=== PATIENT | female | born 1950 | race Caucasian/White ===

== ENCOUNTER 2022-01-28 11:00 | Outpatient (RCR) | payer OTHER, SELFPAY | END 2022-04-26 09:46 | disposition home or self-care (01) | PROVIDERS: PCP Family Medicine; Visit Provider Family Medicine | DX: M16.11 Unilateral primary osteoarthritis, right hip (principal); Z51.89 Encounter for other specified aftercare | CPT/HCPCS: 97012; 97110; 97140 ==

== ENCOUNTER 2022-02-12 07:19 | Outpatient (CLI) | payer OTHER, SELFPAY ==
--- OUTSIDE RECORDS SUMMARY | 2022-02-12 07:22 | XMS_ITS | Continuity of Care Document ---
:1950 Author Organization [facility] Address [address] [address] [place] [address] Phone Care Team Providers Name Role Phone Millie Steele MD Unavailable Unavailable Medications Medication Instructions Dosage Effective Dates Status Comment s (start - stop) VITAMIN C (unknown Take one tablet by Not Available - Act alexandro strength) mouth daily Multiple Vitamin Take one tablet by - Active Tab mouth daily Lo-Dose Aspirin 81 Take one tablet by - Active mg Tab, Delayed mouth daily Release Procedures Procedure Date Colonoscopy Flex; Dx (sep Pro) Advance Directives Directive Yes / No Effective Date File Name No Information Encounters Encounter Practice Location Reason(s) Diagnoses Date Provider Provide rs Description For Visit Copied on Encounter HERMELINDA SHEN Colon Cancer [facility] Screening[facility] 1-200 [facility], [place] osis Of Colon [address] [address], [facility] [place], [place], [place], [place] [id number], [address], [place] [facility] tel: [place], [place], [id number] , [place]. tel:+ [phone] Family History Family Member Type Diagnosis Age At Onset No Information Payers Payer name Insurance type Covered republican ID Authorization(s ) [place] Of [place] [id number] Social History Type Description Quantity Date Captured Comments Sex Female Smoking Status No Information Chief Complaint And Reason For Visit No Information Reason For Referral Reason For Referral No Information Plan Of Treatment Date Type Action Status No Information History Of Present Illness Encounter Date Complaint History Of Present I llness No Information Functional Status Date Functional Assessment No Information Instructions Date Instruction Additional Informati on No Information Assessments Type Assessment Date No Information Patient Care Teams Name Effective Dates (start - stop) Status M embaimee No Information
--- OUTSIDE RECORDS SUMMARY | 2022-02-12 07:22 | XMS_ITS | Clinical Summary ---
:1950 Author Organization [facility] [place] [address] Care Team Providers Name Role Phone Annmarie Nix MD Primary Care Provider [phone] Allergies No known active allergies Medications Medication Sig Dispensed Refills Start Date End Date Status atorvastatin (LIPITOR) Take 10 mg by 0 07/16/2021 Active 10 mg tablet mouth at bedtime. buPROPion (WELLBUTRIN Take 150 mg by 0 07/16/2021 Active XL) 150 mg mouth once Extended-Release tablet daily. escitalopram oxalate Take 10 mg by 0 07/16/2021 Active (LEXAPRO) 10 mg tablet mouth once daily. losartan (COZAAR) 50 mg Take 50 mg by 0 07/16/2021 Active tablet mouth once daily. aspirin (ECOTRIN) 81 mg Take 1 Tablet 0 09/10/2021 Active enteric coated tablet (81 mg) by mouth once daily with a meal. celecoxib (CELEBREX) Take 1 Capsule 60 Capsule 2 10/23/2021 Active 200 mg (200 mg) by capsuleIndications: mouth 2 times Primary osteoarthritis daily with of right hip meals. Active Problems No known active problems Encounters Date Type Specialty Care Team Description 01/28/2022 Telephone Maynor Daniels MD Ques tions from Last 3 Months Social History Tobacco Use Types Packs/Day Years Used Date Never Smoker Smokeless Tobacco: Never Used Tobacco Cessation: Counseling Given: Yes Sex Assigned at Date Recorded Not on file Obstetrics History Last Filed Vital Signs Vital Sign Reading Time Taken Comments Blood Pressure 138/82 10/09/2021 8:33 AM CDT Pulse 84 10/09/2021 8:33 AM CDT Temperature 36.7 ??C (98 ??F) 10/09/2021 8:33 AM CDT Respiratory Rate - - Oxygen Saturation 99% 10/09/2021 8:33 AM CDT Inhaled Oxygen Concentration - - Weight 72.4 kg (159 lb 9.6 oz) 02/18/2015 4:00 PM CDT Height - - Body Mass Index - - Plan of Treatment Upcoming Encounters Date Type Specialty Care Team Description 02/12/2022 Office Visit Maynor Daniels MD [address] [place], [place] [address] (Wo rk) Health Maintenance Due Date Last Done Comments Tdap 1959 Depression screening for age 12+ 1960 BMI (ht and wt on same day) for age 1104/18/1966 18+ Hepatitis C screening for age 18-79 1966 Tetanus booster 1968 Colonoscopy through age 75 1993 Lipids for age 45-75 1993 Mammogram for age 45-75 1993 Zoster (shingles) series for age 50+ 1998 (1 of 2) DEXA/DXA scan for age 65+ 2013 Medicare Wellness for age 65+ 2013 Pneumococcal series for age 65+ (1 - 2013 PCV) COVID-19 vaccine series (4 - Booster 01/01/2022 09/01/2021, 08/12/2020, for Moderna series) 07/12/2020 Influenza for age 65+ 01/28/2022 Results Not on filefrom Last 3 Months Insurance Payer Benefit Plan / Subscriber ID Effective Dates Phone Addre ss Type Group [employer] G[employer] CHOICE [id number] 2019-Present [address] [place] [address] Care Teams Medical Assistant Per Diem Relationship Specialty Start Date End Date Annmarie Nix MD PCP - General Family Practice 4/14/[address] [place] [id number]
== END 2022-02-12 07:20 | disposition home or self-care (01) ==
PROVIDERS: PCP Family Medicine; Visit Provider Family Medicine
DX: M54.16 Radiculopathy, lumbar region (principal); M51.36 Other intervertebral disc degeneration, lumbar region
CPT/HCPCS: 62323; J0702; Q9966

== ENCOUNTER 2022-06-04 07:33 | Outpatient (CLI) | payer OTHER, SELFPAY ==
[2022-06-04 09:57] LABS: Albumin* 4.5 g/dL (3.3-5.0); Chloride* 104 mmol/L (96-114); Sodium* 140 mmol/L (135-149)
[2022-06-04 09:58] LABS: Potassium* 4.4 mmol/L (3.6-5.1)
[2022-06-04 09:59] LABS: Cholesterol* 176 mg/dL (90-199)
[2022-06-04 10:00] LABS: Alanine Aminotransferase* 22 U/L (4-35); Alkaline Phosphatase* 63 U/L (40-150); Aspartate Amino Transferase* 21 U/L (12-35); Bilirubin Total* 0.5 mg/dL (0.1-1.5); Blood Urea Nitrogen* 15 mg/dL (7-30); Calcium* 9.8 mg/dL (8.4-10.6); Carbon Dioxide* 30 mmol/L (20-32); Creatinine* 0.8 mg/dL (0.5-1.5); Estimated Glomerular Filt Rate 77 ml/min; Glucose* 116 mg/dL (60-115); Total Protein* 6.7 g/dL (6.0-8.3); Triglycerides* 119 mg/dL (40-149)
[2022-06-04 10:01] LABS: HDL Cholesterol* 78 mg/dL (>=50); LDL Cholesterol Calculated 74 mg/dL (<100)
[2022-06-04 10:10] LABS: Vitamin D 25 Hydroxy* 36 ng/mL (30-80)
== END 2022-06-04 07:34 | disposition home or self-care (01) ==
LOC: NFLDREF 07:33
PROVIDERS: PCP Family Medicine; Visit Provider Family Medicine
DX: E78.5 Hyperlipidemia, unspecified (principal); F32.A Depression, unspecified; I10 Essential (primary) hypertension; R73.03 Prediabetes
CPT/HCPCS: 80053; 80061; 82306

== ENCOUNTER 2023-08-24 10:15 | Outpatient (RCR) | payer OTHER, SELFPAY ==
--- NOTE | 2023-06-29 14:36 | OT.OPOE ---
OT Outpatient Ortho Eval OT Outpatient Ortho Eval* Start: 06/29/23 12:09 Freq: Status: Active Protocol: Document 06/29/23 12:09 BAL (Rec: 06/29/23 14:26 BAL [id number]) E-signed By Maude Cameron OTR/L, CLT OT OP Ortho Eval Details Complexity Complexity Low Insurance Information Insurance Information [employer] Outpatient History/Precautions Current Condition/Medical Diagnosis Referring Provider Goran Sales PA-C Treatment Diagnosis Pain in R wrist, M25.531; R wrist Stiffness, M25.631 Date of Onset 05/24/2023 Other Precautions Medical Dx: Other closed intra -articular fracture of distal end of right radius, initial encounter S52.571A Other Conditions Copied from chart: Provider visit on 06/28/23: Impression: Minimal residual distal radius volar lip fracture; severe STT joint, 1st CMC joint, and thumb MCP joint osteoarthrosis. PA, Lateral and Oblique views of the right wrist were obtained on 06/28/2023 from [facility], were ordered by a different physician, were reviewed by me today, and show distal radius fracture volar lip seen best on lateral radiograph. Overall distal radius articular alignment appears appropriate/acceptable. Incidentally, severe STT joint and 1st CMC joint along with thumb MCP joint osteoarthrosis seen with [id number] joint space loss, subchondral sclerosis, and osteophyte formation Medical/Functional History Medical History Reviewed Yes Prior Level of Function/Mobility Osteoarthritis of carpometacarpal (CMC) joint of right thumb, severe M18.11 - Unilateral primary osteoarthritis of first carpometacarpal joint, right hand (ICD-10) Distal radius fracture, right (Acute) closed treatment of a closed, acute right mildly displaced intra-articular fracture at the base of the radial styloid S52.501A - Unspecified fracture of the lower end of right radius, initial encounter for closed fracture (ICD-10) Screening for colon cancer ( Acute) Z12.11 - Encounter for screening for malignant neoplasm of colon (ICD-10) Medicare annual wellness visit , subsequent (Acute) Z00.00 - Encounter for general adult medical examination without abnormal findings (ICD -10) Thrombocytopenia (Acute ) D69.6 - Thrombocytopenia, unspecified (ICD-10) Well woman exam (no gynecological exam) (Acute) Z00.00 - Encounter for general adult medical examination without abnormal findings (ICD -10) History of bone density study (Chronic 02/2020) NORMAL DEXA SCAN Z92.89 - Personal history of other medical treatment (ICD- 10) Chronic right hip pain (Acute) sciatica , improved with steroid lumbar injection M25.551 - Pain in right hip ( ICD-10) G89.29 - Other chronic pain ( ICD-10) Dyslipidemia (Chronic) E78.5 - Hyperlipidemia, unspecified (ICD-10) Hypertension (Chronic ~2018) I10 - Essential (primary) hypertension (ICD-10) Prediabetes (Chronic 2018) R73.03 - Prediabetes (ICD-10) Depression (Chronic) F32.A - Depression, unspecified (ICD-10) Social History Employment Status Retired Current Occupation , mother to 3 adult children, grandma to 5 kids Other Critical Job Demands House hold tasks Hobbies Sewing Fitness 3-5 times a week patient engages in purposeful exercise /activity Ortho Subjective Subjective Subjective Patient is 1 month post closed treatment of a closed, acute right minimally displaced intra-articular fracture base radial styloid (date of injury 05/24/2023). Injury occurred on [facility] when she tripped outside on the voucher examiner. She is having some discomfort through the wrist now that the cast is off. Wrist stiffness. Right-hand- dominant individual. Pain Assessment Pain Present Pain Present Pain Reported Location Right Wrist Description Radiating,Throbbing,Heaviness Intensity 4 Goniometric Comments Goniometric Comments Goniometric Comments R wrist AROM: Flexion 15?, extension 10 degrees; Pronation 50 degrees and Supination 26 degrees Radial deviation 15 degrees, Ulnar deviation 11 degrees OT Objective Data Hand Hand Dominance Right Hand Function Osteoarthritis of carpometacarpal (CMC) joint of right thumb, severe Additional Information Objective Additional Information Right Wrist: Very mild swelling, ecchymosis , or erythema. No gross deformity TTP mildly over the radial styloid 2+ radial pulse, pink, warm, appropriate capillary refill digits; intact dermatomes and myotomes distally (radial, ulnar, and median nerve distributions) OT Problems Problems Problems Decreased Strength,Decreased Range of Motion,Decreased Dexterity,Pain,Decreased Coordination,Lifting,Gripping, Pinching Problems Comments Osteoarthritis of carpometacarpal (CMC) joint of right thumb, severe Other Problems Writing,Opening Containers, Dressing,Fasteners Patient Potential Good Assessment Assessment Assessment 73-year-old R hand dominant female had a fall outside her home on , sustaining a fracture to her R (dominant) wrist. She was seen by Ortho on 05/31/23 and treated nonsurgical, placed in a short arm cast, this was removed at her f/u visit on . She has a supportive spouse that is doing all the driving, and IADLs right now. She is very motivated and an excellent candidate for skilled therapy. PLAN: modalities when/if needed, development of a HEP with advancing as patient progresses and/or as Ortho provider reduces precautions/ changes restrictions. Anticipated that patient will accomplish all goals in POC within 8 weeks. Complicating factors includes hand arthritis to multiple digits with Osteoarthritis of carpometacarpal (CMC) joint of right thumb, severe. Occupational Therapy Treatment Plan - OP Potential Rehabilitation Potential Excellent Barriers Barriers to goal attainment Osteoarthritis of carpometacarpal (CMC) joint of right thumb, severe Set Goals Goals Set with Patient Yes Goals Goals 1. Through activity participation in skilled therapy sessions, and consistency in performing a customized HEP, patient will improve capacity of tendons and muscles to manage load in order to have less pain with ADLs, work, leisure activities and IADLs when using her R ( dominant hand). 2.. From EVAL score on The Upper Extremity Functional Index (UEFI) patient will have a change in score by >9 points in order to show significant change in UE function. (Raw score on EVAL 35 points) 3. From EVAL raw score (37 points) on The Disabilities of the Arm, Shoulder and Hand ( Quick DASH) patient will have a decreased score by >9 points in order to show significant change in UE function to better her ADL, IADL, work and leisure performance. 4. Patient will self-report the ability to use her R UE to wash and dry dishes after a meal w/o levels increasing >2/ 10. 5. Patient will be able to be a full closed fist with the R dominant hand. 6. Patient will return to sewing activities with her R dominant hand for 10 min durations w/o pain levels increasing >2/10. 7. Patient R (dominant) hand lan engineer strength will be within 15 lbs of her L (non effected/ non dominant side) *Conveyor Line Battery Charger strength not formally tested on EVAL as cast was just removed 06/28/23 Target Date 8 weeks Treatment Plan Treatment Plan Evaluation,Edema Control, Manual Therapy,Ultrasound, Therapeutic Exercise,Self Care /Home Management,Education Expected Frequency 1-2x Week Expected Duration 8-10 Weeks Home Program Home Program Home Program Initiated Home Program Specifics Access Code: [email or web address] URL: [email or web address] Date: 06/29/2023 Prepared by: Maude Cameron Exercises - Wrist AROM Flexion Extension - 1 x daily - 7 x weekly - 3 sets - 10 reps - Wrist AROM Radial Ulnar Deviation - 1 x daily - 7 x weekly - 3 sets - 10 reps - Seated Forearm Pronation and Supination AROM - 1 x daily - 7 x weekly - 3 sets - 10 reps - Wrist AROM Wrist Circumduction - 1 x daily - 7 x weekly - 3 sets - 10 reps - Seated Digit Tendon Gliding - 1 x daily - 7 x weekly - 3 sets - 10 reps - Wrist Prayer Stretch - 1 x daily - 7 x weekly - 3 sets - 10 reps - Wrist AAROM Flexion and Extension - 1 x daily - 7 x weekly - 3 sets - 10 reps Recertification Information Recertification Information Initial Certification Date 06/29/23 Recertification Due Date 09/27/23 Click To Default 'Per treatment plan' Per treatment plan Continued Plan of Care and Interventions Per treatment plan Provider Signature Shows Agreement With POC & Medical Necessity Physician Comment/Change Comment or Changes Physician NPI Number #
== END 2023-08-24 11:18 | disposition home or self-care (01) ==
PROVIDERS: PCP Family Medicine; Visit Provider Physician Assistant Surgical
DX: S52.501A Unspecified fracture of the lower end of right radius, initial encounter for closed fracture (principal); M25.531 Pain in right wrist; M25.631 Stiffness of right wrist, not elsewhere classified; Z51.89 Encounter for other specified aftercare
CPT/HCPCS: 97110; 97165; X5282

== ENCOUNTER 2023-09-21 14:09 | Outpatient (CLI) | payer OTHER, SELFPAY ==
--- OUTSIDE RECORDS SUMMARY | 2023-09-21 14:12 | XMS_ITS | Clinical Summary ---
Author Name Unknown Organization [email or web address] [facility] Address [place], [place] [address] Care Team Providers Care Mounter Hand Name Role Phone Annmarie Nix MD Primary Care Provider + Allergies No known active allergies Medications Medication Sig Dispensed Refills Start Date End Date Status atorvastatin (LIPITOR) 10 mg tablet Take 10 mg by mouth at bedtime. 07/16/2021 Active buPROPion (WELLBUTRIN XL) 150 mg Extended-Release tablet Take 150 mg by mouth once daily. 07/16/2021 Active escitalopram oxalate (LEXAPRO) 10 mg tablet Take 10 mg by mouth once daily. 07/16/2021 Active losartan (COZAAR) 50 mg tablet Take 50 mg by mouth once daily. 07/16/2021 Active aspirin (ECOTRIN) 81 mg enteric coated tablet Take 1 Tablet (81 mg) by mouth once daily with a meal. 0 09/10/2021 Active celecoxib (CELEBREX) 200 mg capsuleIndications:Sarah jacqui osteoarthritis of right hip Take 1 Capsule (200 mg) by mouth 2 times daily with meals. 60 Capsule 2 10/23/2021 Active Active Problems No known active problems Social History Tobacco Use Types Packs/Day Years Used Date Smoking Tobacco: Never Smokeless Tobacco: Never Tobacco Cessation:Counseling Given: Yes Social Connections Answer Date Recorded Frequency of Communication with Friends and Fami ly Not on file 09/10/2021 Sex and Gender Information Value Date Recorded Sex Assigned at Not on file Gender Identity Not on file Sexual Orientation Not on file Obstetrics History Last Filed Vital Signs Vital Sign Reading Time Taken Comments Blood Pressure 145/82 02/11/2023 8:42 AM CDT Pulse 91 02/11/2023 8:42 AM CDT Temperature 36.9 ??C (98.5 ??F) 02/11/2023 8:42 AM CD T Respiratory Rate - - Oxygen Saturation 97% 02/11/2023 8:42 AM CDT Inhaled Oxygen Concentration - - Weight 72.4 kg (159 lb 9.6 oz) 02/18/2015 4:00 P M CDT Height - - Body Mass Index - - Plan of Treatment Upcoming Encounters Date Type Department Care Team (Late st Contact Info) Description 11/25/2023 10:00 AM CDT Office Visit [facility] [address] [place] [address] Genaro Garcia MD [address] [place] [address] Health Maintenance Due Date Last Done Comments Tdap 1959 Depression screening for age 12+ 1960 BMI (ht and wt on same day) for age 18+ 1966 Hepatitis C screening for ag e 18-79 1966 Tetanus booster 1968 Colonoscopy through age 75 1993 Lipids for age 45-75 1993 Zoster (shingles) series for age 50+ (1 of 2) 1998 DEXA/DXA scan for age 65+ 2013 Medicare Wellness for age 65+ 2013 Pneumococcal series for age 65+ (1 of 1 - PCV) 2013 COVID-19 vaccine series ( season) 2023 01/18/2023, 03/09/2022, 09/01/2021, Additional history exists Influenza for age 65+ 01/29/2024 Care Teams Mounter Hand Relationship Specialty Start Date End Date Annmarie Nix MD [address] [place] [address] PCP - General Family Practice 09/10/21
--- NOTE | 2023-09-21 14:30 | XR_ITS ---
Patient: AZUL HODGES Facility:?[facility] Patient ID:?[id number] Site Patient ID:?[id number]. Site :?1950 Study:?DEXA-Bone Density -09/21/2023 3:36:33 PM Ordering Physician:SARAHI Final Report: DXA BONE MINERAL DENSITY STUDY Reason for exam: Screening for osteoporosis. Current height (in): 65.5. Weight (lb): 156.0. Menopause age: 42. Ethnicity: White. 1. Have you had a previous hip or vertebral fracture? No. 2. Have you had any fractures during your adult life which did not result from significant trauma (e.g., auto accident)? No. 3. Did either of your parents have a hip fracture? No. 4. Do you smoke? No. 5. Have you ever taken Glucocorticoids? No. 6. Do you have rheumatoid arthritis? No. 7. Do you have secondary osteoporosis? No. 8. Do you drink 3 or more alcoholic drinks per day? No. 9. Are you being treated for osteoporosis? No. 10. Have you ever taken any of the following medications: Actonel, Evista, Fosamax, Miacalcin, Reclast, Boniva, Forteo, HRT (i.e. estrogen/hormone therapy), Protelos, Prolia, Vitamin D, Calcium, other ? please specify. ANSWER: Yes, vitamin D. 11. Do you have any of the following medical conditions: Anorexia or bulimia, asthma or emphysema, end stage renal disease, hyperparathyroidism, any seizure disorders, cancer, inflammatory bowel diseases, hysterectomy, other ? please specify. ANSWER: No. 12. What was your maximum height (inches)? 66. 13. Do you perform weight bearing exercise regularly? No. 14. Do you regularly consume dairy products? Yes. 15. Do you drink caffeinated beverages? Yes. 16. At what age did your period start? 12. 17. Are you premenopausal? No. 18. How many full term pregnancies have you had? 4. 19. Have you ever missed your period for more than 6 months in a row (not including or menopause)? No. TECHNIQUE: Bone mineral density study was performed using the [employer]. FINDINGS: The results of the study expressed as bone mineral density (BMD) are as follows: Lumbar spine L1, L3, L4: BMD: 1.491 g/cm2. T-score: 4.0. Z-score: 6.4. Neck Left: BMD: 0.831 g/cm2. T-score: -0.2. Z-score: 1.9. Right: BMD: 0.826 g/cm2. T-score: -0.2. Z-score: 1.9. Total Left: BMD: 1.052 g/cm2. T-score: 0.9. Z-score: 2.7. Right: BMD: 1.022 g/cm2. T-score: 0.7. Z-score: 2.5. IMPRESSION: Normal bone density. *Comparison exams done prior to 10/2019 were performed on different unit, [facility]. COMPARISON: Compared with scan of 03/27/2020, the bone mineral density has increased by 4.6 percent at the spine and increased by 0.2 percent at the hip. Myron Pandya M.D. Diagnostic Radiologist [email or web address] [email or web address] / be/Dictated by: Myron Pandya MD @ 09/22/2023 8:21:00 AM Signed by:?Myron Pandya MD @09/23/2023 11:26:45 AM (Electronic Signature)
== END 2023-09-21 14:10 | disposition home or self-care (01) ==
LOC: RAD 14:10
PROVIDERS: PCP Family Medicine; Visit Provider Family Medicine
DX: Z13.820 Encounter for screening for osteoporosis (principal); M81.0 Age-related osteoporosis without current pathological fracture; Z87.81 Personal history of (healed) traumatic fracture
CPT/HCPCS: 77080

== ENCOUNTER 2023-09-28 09:32 | Outpatient (CLI) | payer OTHER, SELFPAY ==
--- OUTSIDE RECORDS SUMMARY | 2023-09-28 09:35 | XMS_ITS | Clinical Summary ---
Author Name Unknown Organization [employer] [facility] Address [place], [place] [address] Care Team Providers Care Ambulette Driver Name Role Phone Annmarie Nix MD Primary [...] Care Team (Late st Contact Info) Description 10/13/2023 1:00 PM CDT Office Visit [facility] [address] [place] [address] Genaro Garcia MD [address] [place] [address] 11/25/2023 10:00 AM CDT Office Visit [facility] [address] [place] [address] Genaro Garcia MD [address] [place] [address] Health Maintenance Due Date Last Done Comments [...] 1 - PCV) 2013 COVID-19 vaccine series (2022-24 season) 2023 01/18/2023, 03/09/2022, 09/01/2021, Additional history exists Influenza for age 65+ 01/29/2024 Care Teams Ambulette Driver Relationship Specialty Start Date End Date Annmarie Nix MD [address] [place] [address] PCP - General Family Practice 09/10/21
== END 2023-09-28 09:33 | disposition home or self-care (01) ==
PROVIDERS: PCP Family Medicine; Visit Provider Family Medicine
DX: E78.5 Hyperlipidemia, unspecified (principal); I10 Essential (primary) hypertension; R73.03 Prediabetes; Z13.21 Encounter for screening for nutritional disorder; Z13.29 Encounter for screening for other suspected endocrine disorder
CPT/HCPCS: 80053; 80061; 82306; 82607; 84443

== ENCOUNTER 2023-10-11 14:31 | Outpatient (CLI) | payer OTHER, SELFPAY ==
--- OUTSIDE RECORDS SUMMARY | 2023-10-11 14:34 | XMS_ITS | Clinical Summary ---
Author Name Unknown Organization [employer] [facility] Address [place], [place] [address] Care Team Providers Care Cross Enterprise Integrator Name Role Phone Annmarie Nix MD Primary [...] Care Team (Late st Contact Info) Description 10/11/2023 3:00 PM CDT Ancillary Procedure [facility] [address] [place] [address] 10/13/2023 1:00 PM CDT Office Visit [facility] [address] [place] [address] Genaro Garcia MD [address] [place] [address] 11/25/2023 10:00 AM CDT Office Visit [facility] [address] [place] [address] Genaro Garcia MD [address] [place] [address] Health Maintenance Due Date Last Done Comments [...] - PCV) 2013 COVID-19 vaccine series ( - 2022- season) 2023 01/18/2023, 03/09/2022, 09/01/2021, Additional history exists Influenza for age 65+ 01/29/2024 Care Teams Cross Enterprise Integrator Relationship Specialty Start Date End Date Annmarie Nix MD [address] [place] [address] PCP - General Family Practice 09/10/21
[2023-10-11] MEDS: PERFLUTREN LIPID MICROSPHERES 2 ML VIAL IV (15:37)
[2023-10-11 16:00] VITALS: BP 144/63; PULSE 98
--- NOTE | 2023-10-11 16:20 | W.PM.STED ---
Stress Test Note Date Date of test: 10/11/23 Providers Primary care provider: Annmarie Nix Stress test physician: James Bose Stress Test Note Stress test ordered: Stress Echo Indication for test: Dyspnea Stress test medicine: Definity Results discussion: This very pleasant 73-year-old lady presents for the above stress test after discussion the risks benefits and side effects she would like to proceed cardiac stress test medical history form is reviewed. Pretest EKG shows the ventricular rate of 82 she is in normal sinus rhythm, with a blood pressure [address] on 85[address] No acute ST wave changes are noted. Q-waves are noted in leads to 2 3 and AVF. Following standard Bj protocol patient is stressed, chest Bj protocol is followed for duration of 7 minutes 24 seconds he received a metabolic equivalent of 8.9 Mets. Test is terminated because of fatigue, and fulfillment of protocol, she did not have any chest pain or significant shortness of breath. Her maximum blood pressure was 218/94. During this tracing there was 2 to 3 mm of depression noted in leads 2 3 and AVF. No reciprocal changes are noted this occurred at maximal exercise, and through recovery. Impression: Positive stress test with ST wave changes in the inferior leads, this occurred a maximal activity, there were no reciprocal changes, and this needs to be correlated with the echo portion Follow up suggested: Await echo reading, clinical correlation of this will be needed. Should be noted the patient exercised to a high level and this may be a false positive on the electrographic portion. She recovered normally left this testing facility in excellent condition
== END 2023-10-11 14:32 | disposition home or self-care (01) ==
LOC: STRESS 14:32
PROVIDERS: PCP Family Medicine; Visit Provider Family Medicine
DX: I25.10 Atherosclerotic heart disease of native coronary artery without angina pectoris (principal); R06.00 Dyspnea, unspecified; Z82.49 Family history of ischemic heart disease and other diseases of the circulatory system
CPT/HCPCS: 93016; 93325; 93351; 97110; 97166; Q9957; X5282

== ENCOUNTER 2023-10-18 12:52 | Outpatient (CLI) | payer OTHER, SELFPAY ==
--- OUTSIDE RECORDS SUMMARY | 2023-10-18 12:54 | XMS_ITS | Clinical Summary ---
Author Name Unknown Organization [facility] Address [place], [place] [address] Care Team Providers Care Operations Asst Name Role Phone Raz Calvin MD Primary Care Provider + Allergies No [...] Active Active Problems No known active problems Encounters Date Type Department Care Team Description 10/13/2023 1:00 PM CDT Office Visit [facility] [address] [place] [address] Genaro Garcia MD Sleep Consult 10/13/2023 Travel 10/11/2023 3:00 PM CDT Ancillary Procedure [facility] [address] [place] [address] 10/11/2023 Travel from Last 3 Months Social History Tobacco [...] Sign Reading Time Taken Comments Blood Pressure 135/78 10/13/2023 1:01 PM CDT Pulse 84 10/13/2023 1:01 PM CDT Temperature 36.9 ??C (98.5 ??F) 02/11/2023 8:42 AM CD T Respiratory Rate - - Oxygen Saturation 98% 10/13/2023 1:01 PM CDT Inhaled Oxygen Concentration - - Weight 70.5 kg (155 lb 6.4 oz) 10/13/2023 1:01 P M CDT Height 166.4 cm (5' 5.5) 10/13/2023 1:01 PM CDT Body Mass Index 25.47 10/13/2023 1:01 PM CDT Plan of Treatment Upcoming Encounters Date Type Department Care Team (Late st Contact Info) Description 10/25/2023 1:45 PM CDT Nurse/Clinic Staff Only [address] [address] 10/26/2023 7:30 AM CDT Nurse/Clinic Staff Only [facility] [address] [place] [address] 11/25/2023 10:00 AM CDT Office [facility] [address] [place] [address] Genaro Garcia MD [address] [place] [address] Health Maintenance Due Date Last Done Comments Tdap 1959 Depression screening for age 12+ 1960 Hepatitis C screening for ag e 18-79 1966 Tetanus booster 1968 Colonoscopy through age 75 1993 Lipids for age 45-75 1993 Zoster (shingles) series for age 50+ (1 of 2) 1998 DEXA/DXA scan for age 65+ 2013 Medicare Wellness for age 65+ 2013 Pneumococcal series for age 65+ (1 of 1 - PCV) 2013 Influenza for age 65+ 01/29/2024 BMI (ht and wt on same day) for age 18+ 10/12/2024 10/13/2023 COVID-19 vaccine series Completed 04/07/20 23, 01/18/2023, 03/09/2022, Additional history exists Procedures Procedure Name Priority Date/Time Associated Diagnosis Comments ECHO STRESS EXERCISE W CONTRAST Routine 10/11/2023 5:14 PM CDT CAD (coronary artery disease) from Last 3 Months Results * ECHO STRESS EXERCISE W CONTRAST (10/11/2023 5:14 PM CDT) AORTIC VALVE MEAN PG 2 mmHg PEAK TR VELOCITY 2.7 m/s Anatomical Region Laterality Modality Ultrasound 10/11/2023 3:14 PM CDT Narrative 10/11/2023 6:31 PM CDT STRESS ECHOCARDIOGRAM STELLA HODGES ?Accession#: ?? [id number] : ?1950 73 years Study Date: ?? 10/11/2023 3:14:24 PM Gender: F ? BP: ? 166/85 mmHg Height: 165.00 cm ? BSA: ?1.76 m? ? ? Weight: 69.00 kg ?Tech: ? [facility] ?Referring MD: RAZ CALVIN Site: ? [facility] [place] Reading Location: Mobile-OP Patient Location: Outpatient. Procedure: Stress Echo. Bj stress echo. Indication for study: CAD Cardiac Rhythm: Regular.Study quality: Technically limited. Final Impressions: 1. Technically limited exam. 2. Negative stress echo for ischemia. 3. See separate report for EKG interpretation. 4. Post stress, normal left ventricular size, normal global systolic function with an estimated EF of 65 to 70%. 5. Maximum stress test with 95.5% of age predicted maximum heart rate achieved. 6. During stress exam the patient developed fatigue. COMMENTS: consider alternative ischemic work up due to poor image quality. ? HR ?Systolic Diastolic Baseline 78 bpm ?166 ?85 mmHg Peak ? 138 bpm ?? 218 ?94 mmHg Max Pred HR ?145 % of Max ? 95% Double Product [id number] Echo Findings:This is a negative stress echo test for ischemia. Post stress, normal left ventricular size, normal global systolic function with an estimated EF of 65 to 70%. LV regional wall motion abnormalities are not present post exercise. EKG:See separate report for EKG interpretation. Exam Protocol:The patient presents with no significant symptoms at baseline. Maximum stress test with 95.5% of age predicted maximum heart rate achieved. The blood pressure response was hypertensive. The patient developed fatigue during the stress exam. Low (less than 1% annual mortality rate) non invasive risk stratification. Chamber Sizes and Function Normal left ventricular size, normal global systolic function. LV regional wall motion abnormalities are not present. Valves, RV Pressures and Diastolic Function Tricuspid regurgitation is trace. The tricuspid regurgitant velocity is 2.7 m/s, the estimated right ventricular systolic pressure is 30 mmHg plus right atrial pressure. MEASUREMENTS AND CALCULATIONS 2-D Measurements and LV Function: Ao Sinus 3.0 cm LVOT diameter 1.8 cm ?HR ?78 bpm Aortic Valve: Vmax ? 1.1 m/s ??ELIER (V) ?? 2.20 cm? ? ? VTI ?0.22 m ?? ELIER (I) ?? 2.10 cm? ? ? LVOT V max 1.0 m/s ??Max PG ?5 mmHg LVOT VTI ?? 0.18 m ?? Mean PG ?? 2 mmHg SV ? 45 ml ?Dim Index 0.85 SV index ?? 26 ml/m? ? ? Tricuspid Valve and estimated PA pressures: TR Vmax 2.7 m/s TR maxG 30 mmHg . This study was interpreted by an [facility] accredited facility. CC: Med/Surg - IP [facility] (med records) [facility]. ??Final ?? Procedure Note Myron Hawkins MD - 10/11/2023 STRESS ECHOCARDIOGRAM STELLA HODGES : 1950 73 years Study Date: 10/11/2023 3:14:24 PM Gender: F BP: 166/85 mmHg Height: 165.00 cm BSA: 1.76 m? ? ? Weight: 69.00 kg Tech: [facility] Referring MD: RAZ CALVIN Site: [facility] Reading Location: Mobile-OP Patient Location: Outpatient. Procedure: Stress Echo. Bj stress echo. Indication for study: CAD Cardiac Rhythm: Regular.Study quality: Technically limited. Final Impressions: 1. Technically limited exam. 2. Negative stress echo for ischemia. 3. See separate report for EKG interpretation. 4. Post stress, normal left ventricular size, normal global systolicfunction with an estimated EF of 65 to 70%. 5. Maximum stress test with 95.5% of age predicted maximum heart rateachieved. 6. During stress exam the patient developed fatigue. COMMENTS: consider alternative ischemic work up due to poor imagequality. HR Systolic Diastolic Baseline 78 bpm 166 85 mmHg Peak 138 bpm 218 94 mmHg Max Pred HR 145 % of Max 95% Double Product [id number] Echo Findings:This is a negative stress echo test for ischemia. Poststress, normal left ventricular size, normal global systolic function withan estimated EF of 65 to 70%. LV regional wall motion abnormalities arenot present post exercise. EKG:See separate report for EKG interpretation. Exam Protocol:The patient presents with no significant symptoms atbaseline. Maximum stress test with 95.5% of age predicted maximum heartrate achieved. The blood pressure response was hypertensive. The patientdeveloped fatigue during the stress exam. Low (less than 1% annualmortality rate) non invasive risk stratification. Chamber Sizes and Function Normal left ventricular size, normal global systolic function. LV regionalwall motion abnormalities are not present. Valves, RV Pressures and Diastolic Function Tricuspid regurgitation is trace. The tricuspid regurgitant velocity is2.7 m/s, the estimated right ventricular systolic pressure is 30 mmHg plusright atrial pressure. MEASUREMENTS AND CALCULATIONS 2-D Measurements and LV Function: Ao Sinus 3.0 cm LVOT diameter 1.8 cm HR 78 bpm Aortic Valve: Vmax 1.1 m/s ELIER (V) 2.20 cm? ? ? VTI 0.22 m ELIER (I) 2.10 cm? ? ? LVOT V max 1.0 m/s Max PG 5 mmHg LVOT VTI 0.18 m Mean PG 2 mmHg SV 45 ml Dim Index 0.85 SV index 26 ml/m? ? ? Tricuspid Valve and estimated PA pressures: TR Vmax 2.7 m/s TR maxG 30 mmHg . This study was interpreted by an [facility] accredited facility. CC: Med/Surg - IP [facility], [facility] (med records) [facility]. Final Raz Calvin MD ECHO ORD from Last 3 Months Care Teams Operations Asst Relationship Specialty Start Date End Date Raz Calvin MD [address] [place] [address] PCP - General Family Practice 09/10/21
--- NOTE | 2023-10-18 13:00 | MM_ITS ---
Patient: AZUL HODGES Facility:?[facility] Patient ID:?[id number] Site Patient ID:?[id number] Site :?1950 Study:?XRay-Breast Bilateral 3D W/CAD-10/18/2023 1:46:46 PM Ordering Physician:Annmarie Mcbride Final Report: BILATERAL SCREENING MAMMOGRAM WITH COMPUTER-AIDED DETECTION AND TOMOSYNTHESIS TECHNIQUE: CC and MLO views were obtained. These mammographic images have been obtained using full-field digital technique. These mammographic images were interpreted with the benefit of computer-aided detection. Breast Tomosynthesis was used in this interpretation. COMPARISON FILM: 10/15/22, 09/16/21, 07/09/20. FINDINGS: There are scattered areas of fibroglandular density. IMPRESSION: There is no radiographic evidence for malignancy. ASSESSMENT: BI-RADS Category 2: Benign RECOMMENDATION: Routine screening mammogram in 1 year. A lay language report of this examination will be provided to the patient. Myron Pandya M.D. Diagnostic Radiologist [email or web address] DSM/sp R& Transcribed: 5:35 p.m. SP/Dictated by: Myron Pandya MD @ 10/19/2023 9:41:00 AM Signed by:?Myron Pandya MD @10/19/2023 5:45:10 PM (Electronic Signature)
== END 2023-10-18 12:53 | disposition home or self-care (01) ==
PROVIDERS: PCP Family Medicine; Visit Provider Family Medicine
DX: Z12.31 Encounter for screening mammogram for malignant neoplasm of breast (principal)
CPT/HCPCS: 77063; 77067

== ENCOUNTER 2024-03-13 15:15 | Outpatient (RCR) | payer OTHER, SELFPAY ==
--- NOTE | 2023-10-13 16:52 | OT.OPOE ---
OT Outpatient Ortho Eval OT Outpatient Ortho Eval* Start: 10/13/23 16:39 Freq: Status: Active Protocol: Document 10/11/23 08:30 BAL (Rec: 10/13/23 16:50 BAL [id number]) E-signed By Maude Cameron, OTR/L, CLT OT OP Ortho Eval Details Complexity Complexity Medium Insurance Information Insurance Information [employer] Insurance Information Comments MEDICAL Dx: PCP wrote order for OT on to Eval and treat for Pain in R and L hand (M79.641 & M79 .642) Outpatient History/Precautions Current Condition/Medical Diagnosis Referring Provider Dr. Keisha Nix Treatment Diagnosis R20.2 Paresthesia of skin & M79.641, Pain in R hand Date of Onset Began 3 months ago Other Precautions Patient has an apt on November [address] 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 - Unspecified mononeuropathy of unspecified upper limb (ICD - 10) Family history of early CAD (Acute) Z82.49 - Family history of ischemic heart disease and other diseases of the circulatory system (ICD-10 ) Distal radius fracture, right (Acute ~2022) closed treatment of a closed, acute right mildly displaced intra - articular fracture at the base of the radial styloid (date of injury 05/24/2023) S52.501A - Unspecified fracture of the lower end of right radius, initial encounter for closed fracture (ICD-10) Osteoarthritis of carpometacarpal (CMC) joint of right thumb ( Acute) severe M18.11 - Unilateral primary osteoarthritis of first carpometacarpal joint, right hand (ICD-10) Thrombocytopeni a (Acute ) D69.6 - Thrombocytopeni a, unspecified (ICD-10) History of bone density study (Chronic 2019) NORMAL DEXA SCAN 2023, normal dexa 2019 Z92.89 - Personal history of other medical treatment (ICD 10) Chronic right hip pain (Acute ) sciatica , improved with steroid lumbar injection M25. 551 - Pain in right hip ( ICD- 10) G89.29 - Other chronic pain ( ICD-10) Dyslipidemia ( Chronic) E78.5 - Hyperlipidemia, unspecified ( ICD-10) Hypertension ( Chronic ~2018) I10 - Essential ( primary) hypertension ( ICD-10 ) Prediabetes ( Chronic 2018) R73.03 - Prediabetes ( ICD-10) Depression ( Chronic) F32.A - Depression, unspecified ( ICD -10) Medical/Functional History Medical History Reviewed Yes Prior Level of Function/Mobility Patient is fully Indep with self cares /ADLs and IADLs Lives with spouse at her home in [place] Social History Employment Status Retired Ortho Subjective Subjective Subjective This is a pleasant 73- year- old R hand dominant female patient, who had a fall in April ( 2022) and broke her right wrist which was treated conservatively, now with a healed bone, finished OT therapy for this condition a few months prior. She did do a bone densitometry again which showed completely normal findings as it did last time for years ago. Since then she has had bilateral numbness and tingling in both hands and PCP wrote order for OT on to Eval and treat for Pain in R and L hand (M79.641 & M79 .642) Pain Assessment Pain Present Pain Present Pain Reported Location Right Hand Description Burning,Tightness,Radiating, Stabbing,Shooting Intensity 5 Left Hand Description Burning,Shooting Intensity 3 Goniometric Comments Goniometric Comments Goniometric Comments Patient does not have FULL AROM of R and L UE shoulder flexion and abduction, upper traps kick in quickly: patient will benefit from cervical stretching and low-mid back ( serratus anterior) strengthening. Hand Pinch/Wood Buffer Strength Hand Right Wood Buffer Strength Position 1 (lbs) 30 Wood Buffer Strength Position 2 (lbs) 35 Lateral Pinch Strength (lbs) 15 Three Point Pinch (lbs) 13 Tip Pinch Strength (lbs) 13 Left Wood Buffer Strength Position 1 (lbs) 45 Wood Buffer Strength Position 2 (lbs) 40 Lateral Pinch Strength (lbs) 14 Three Point Pinch (lbs) 17 Tip Pinch Strength (lbs) 12 OT Objective Data Additional Information Objective Additional Information intrinsic muscles of the R hand ( abductor pollicis brevis , flexor pollicis brevis , the opponens pollicis , and the adductor pollicis) have shown signs of weakness, with a small decline in thumb opposition of the R hand. Upper Extremity Special Tests Median Nerve-Carpal Tunnel Wrist Phalen Test Positive Left,Positive Right Wrist Tinel Test bilateral OT Problems Problems Problems Decreased Strength,Decreased Range of Motion,Decreased Dexterity,Pain,Decreased Coordination,Sensory Sensitivity,Lifting,Gripping, Pinching Problems Comments Waking up once or twice in the middle of the night due to the R UE pain/ numbness and tingling Other Problems Writing,Opening Containers, Sleeping Patient Potential Good Assessment Assessment Assessment 73 year old R hand dominant female patient who had a fall in April ( 2022) and broke her right wrist which was treated conservatively, now with a healed bone, finished OT therapy for this condition a few months prior. She did do a bone densitometry again which showed completely normal findings as it did last time for years ago. Since then she has had bilateral numbness and tingling in both hands and PCP wrote order for OT on to Eval and treat for Pain in R and L hand (M79.641 & M79 .642). Patient has a positive Tinels and Phalens in bilateral hands when tested today. Patient has worsening nurseryperson and pinch strengths in the R hand ( compared to a few months ago) and with her being R hand dominant, normative data suggest the dominant UE to be 8-10% stronger than the non dominant UE ( patient falls below the norms for age/gender ). Problem list includes: Pain to bilateral hands with R ( dominant hand pain worse then the L hand); Paresthesias: numbness and/or tingling, which can impair the patient?s fine motor control of affected digits; Declined nurseryperson and/or pinch strength to affected hand; Declined endurance of affective hand for repetitive activity; Declined functional use of affective hand for ADL tasks; Declined knowledge of ergonomic education, proper body mechanics and joint protection during ADL?s, and in the work environment. PLAN: Instruction of home program with verbal and written instructions; Ergonomics, body mechanics, adaptive equipment and adaptations as needed during ADL?s; Splint don/doff, wearing schedule and hygiene; Education on CTS, basic anatomy and causes of compression; Pt will be referred back to referring physician/ surgeon should symptoms persist or worsen. Patient is agreeable to the plan and motivated to make progress. Occupational Therapy Treatment Plan - OP Potential Rehabilitation Potential Good Barriers Barriers to goal attainment Severe digit ( joint) arthritis in multiple joints ( bilateral thumbs are the worse ). Set Goals Goals Set with Patient Yes Goals Goals 1. There is high-level evidence that supports a standardized protocol of thumb proprioception exercises to address related deficits and improve ADL performance. Therapist will advance patient through all 3 stages of her individualized HEP while using errorless learning for accuracy of program. Patient will be able to demonstrate 100 % of her program with use of visual/ written aids. 2. Patient will have a decrease in score on the [place] Hand Questionnaire lower score = less impairment ). 3. Patient upon discharge from therapy should be independent with home program and have returned to their premorbid level of function 4. Patient will demonstrate independence with adaptations and adaptive equipment during ADL?s w/ o verbal cues. 5. Patient will report resolution of paresthesias and /or pain to affected hands ( both R and L) Target Date 8 weeks Treatment Plan Treatment Plan Evaluation,Edema Control, Iontophoresis,Joint Mobilization,Manual Therapy, Splinting,Ultrasound, Therapeutic Exercise, Therapeutic Activities,Self Care/Home Management,Education Expected Frequency 1-2x Week Expected Duration 8-10 Weeks Home Program Home Program Home Program Initiated Home Program Specifics Access Code: [email or web address] URL: [email or web address] Prepared by: Maude Cameron Exercises - Doorway Pec Stretch at 60 Elevation - 1 x daily - 7 x weekly - 3 sets - 10 reps - Standing Shoulder External Rotation Stretch at Wall - 1 x daily - 7 x weekly - 3 sets - 10 reps - Quadruped Serratus Strengthening - 1 x daily - 7 x weekly - 3 sets - 10 reps - Serratus Forearm Push Up Plus at Wall with Elbows - 1 x daily - 7 x weekly - 3 sets - 10 reps - Prone Single Arm Shoulder Y - 1 x daily - 7 x weekly - 3 sets - 10 reps - Prone Shoulder Horizontal Abduction - 1 x daily - 7 x weekly - 3 sets - 10 reps - Prone Lower Trapezius Strengthening on Spanish Ball - 1 x daily - 7 x weekly - 3 sets - 10 reps - Standing Row with Anchored Resistance - 1 x daily - 7 x weekly - 3 sets - 10 reps - Shoulder extension with resistance - Neutral - 1 x daily - 7 x weekly - 3 sets - 10 reps Recertification Information Recertification Information Initial Certification Date 10/11/23 Recertification Due Date 01/09/24 Click To Default 'Per treatment plan' Per treatment plan Continued Plan of Care and Interventions Per treatment plan Provider Signature Shows Agreement With POC & Medical Necessity Physician Comment/Change Comment or Changes Physician NPI Number #
--- NOTE | 2024-01-18 | OT.OPODN ---
OT Outpatient Ortho Daily Note OT Outpatient Ortho Daily Note* Start: 10/13/23 16:39 Freq: Status: Active Protocol: Document 02/01/24 09:55 BAL (Rec: 02/01/24 09:59 BAL [id number]) E-signed By Maude Cameron, OTR/L, CLT Type of Note Type of Note Type of Note Daily Note,Recert/Progress Note Visit Number [id number] Insurance Authorized Visits 16 Comments 10th visit Progress Note/ Recert written (01/18/24) Insurance Information Insurance Information [employer] Insurance Information Comments MEDICAL Dx: PCP wrote order for OT on to Eval and treat for Pain in R and L hand (M79.641 & M79 .642) Outpatient History/Precautions Current Condition/Medical Diagnosis Referring Provider Dr. Keisha Nix Treatment Diagnosis R20.2 Paresthesia of skin & M79.641, Pain in R hand Date of Onset Began 3 months ago Other Precautions Patient has an apt on November [address] 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 - Unspecified mononeuropathy of unspecified upper limb (ICD - 10) Family history of early CAD (Acute) Z82.49 - Family history of ischemic heart disease and other diseases of the circulatory system (ICD-10 ) Distal radius fracture, right (Acute ~2022) closed treatment of a closed, acute right mildly displaced intra - articular fracture at the base of the radial styloid (date of injury 05/24/2023) S52.501A - Unspecified fracture of the lower end of right radius, initial encounter for closed fracture (ICD-10) Osteoarthritis of carpometacarpal (CMC) joint of right thumb ( Acute) severe M18.11 - Unilateral primary osteoarthritis of first carpometacarpal joint, right hand (ICD-10) Thrombocytopeni a (Acute ) D69.6 - Thrombocytopeni a, unspecified (ICD-10) History of bone density study (Chronic 2019) NORMAL DEXA SCAN 2023, normal dexa 2019 Z92.89 - Personal history of other medical treatment (ICD 10) Chronic right hip pain (Acute ) sciatica , improved with steroid lumbar injection M25. 551 - Pain in right hip ( ICD- 10) G89.29 - Other chronic pain ( ICD-10) Dyslipidemia ( Chronic) E78.5 - Hyperlipidemia, unspecified ( ICD-10) Hypertension ( Chronic ~2018) I10 - Essential ( primary) hypertension ( ICD-10 ) Prediabetes ( Chronic 2018) R73.03 - Prediabetes ( ICD-10) Depression ( Chronic) F32.A - Depression, unspecified ( ICD -10) Medical/Functional History Medical History Reviewed Yes Prior Level of Function/Mobility Patient is fully Indep with self cares /ADLs and IADLs Lives with spouse at her home in [place] Social History Employment Status Retired Current Occupation , mother to 3 adult children, grandma to 5 kids Oriented Mental Status No Concerns Ortho Subjective Subjective Subjective Patient last seen on 01/18/24, spacing out sessions to every other week, as patient was only approved for 16 total visits and today is session number 11. Progress Note/ Recert written last visit. At last session, therapist suggested Comfort cool thumb splints for bilateral hands but first recommending to start with the R hand ( dominant UE) as this is her worse side with greater impairment. Therapist measured her and she would be a size MEDIUM in both the R and the L hand. Something new: her R hand ring finger is triggering (Trigger finger). At this time, patient is not reporting pain from this. Pain Assessment Pain Pain Yes Pain Comments 02/01/24 Mild discomfort in the R wrist & thumb this AM, finger stiffness (not pain) more of a discomfort in all PIP/MCP joints of the R hand. Currently, no tingling/ numbness in the fingertips of the R (dominant) hand OT OP Daily Ortho Note/Assessment Therapeutic Exercise Therapeutic Exercise Minutes (minutes) 17 Therapeutic Exercise Comments Yellow PowerWeb flat hand pushes (wrist extension), rubberband digit extension ( wide finger spreading) with the R hand with yellow (thin band). Lastly, Median nerve glides and nerve flossing on the R UE. Manual Therapy Manual Therapy Minutes (minutes) 20 Manual Therapy Comments WRIST/HAND: With patient seated, therapist provided passive accessory movements of the wrist and hand: ? PA of the radioulnar joint (to promote supination) ? AP of the radioulnar joint (to promote pronation) ? PA of the wrist ? AP of the wrist ? Radial and ulnar glide of the wrist ? Wrist traction R hand/wrist: Median Nerve Neural Mobilization to gently increase movement of the nerve and its surrounding connective tissue to improve blood flow and nutrition to the nerve using active- assistive ROM. Ultrasound Ultrasound Minutes (minutes) 10 Ultrasound Location & Joint Position Ultrasound applied to right hand/ wrist (everett side) for 10 minutes for increasing collagen tissue temp prior to stretching and manual therapy to allow for decreased joint stiffness and increased AROM in order to have functional use of the R (dominant hand) with intensity level/settings at: 3 MHz (superficial) and 1. 6 w/cm2 for moderate heating. 100% duty factor (continuous) Ultrasound Frequency & Mode 3 MHz Continuous Intensity (w/cm2) 1.6 Total Occupational Therapy Time Occupational Therapy Minutes 47 Home Program Home Program Home Program Compliant Home Program Specifics Access Code: [email or web address] URL: [email or web address] Prepared by: Maude Cameron Exercises - Doorway Pec Stretch at 60 Elevation - 1 x daily - 7 x weekly - 3 sets - 10 reps - Standing Shoulder External Rotation Stretch at Wall - 1 x daily - 7 x weekly - 3 sets - 10 reps - Quadruped Serratus Strengthening - 1 x daily - 7 x weekly - 3 sets - 10 reps - Serratus Forearm Push Up Plus at Wall with Elbows - 1 x daily - 7 x weekly - 3 sets - 10 reps - Prone Single Arm Shoulder Y - 1 x daily - 7 x weekly - 3 sets - 10 reps - Prone Shoulder Horizontal Abduction - 1 x daily - 7 x weekly - 3 sets - 10 reps - Prone Lower Trapezius Strengthening on [place] Ball - 1 x daily - 7 x weekly - 3 sets - 10 reps - Standing Row with Anchored Resistance - 1 x daily - 7 x weekly - 3 sets - 10 reps - Shoulder extension with resistance - Neutral - 1 x daily - 7 x weekly - 3 sets - 10 reps Range of Motion and Strength Hand/Finger/Thumb Range of Motion and Strength Hand/Finger/Thumb Range of Motion and 01/04/24: Something new: her R Strength hand ring finger is triggering (Trigger finger). At this time, patient is not reporting pain from this. Goniometric Comments Goniometric Comments Goniometric Comments Patient does not have FULL AROM of R and L UE shoulder flexion and abduction, upper traps kick in quickly: patient will benefit from cervical stretching and low-mid back ( serratus anterior) strengthening. Hand Pinch/Valet Attendant Strength Hand Pinch/Valet Attendant Strength Hand Pinch/Valet Attendant Strength Left Hand,Right Hand Left Hand Valet Attendant Strength Position 1 in Elbow 45 Flexion (lbs) Valet Attendant Strength Position 2 in Elbow 40 Extension (lbs) Lateral Pinch Strength (lbs) 14 Three Point Pinch (lbs) 17 Tip Pinch Strength (lbs) 12 Right Hand Valet Attendant Strength Position 1 in Elbow 37 Flexion (lbs) Valet Attendant Strength Position 2 in Elbow 45 Extension (lbs) Lateral Pinch Strength (lbs) 16 Three Point Pinch (lbs) 14 Tip Pinch Strength (lbs) 13 Comments Comments 01/18/24: 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 Upper Extremity Special Tests Median Nerve-Carpal Tunnel Wrist Phalen Test Positive Left,Positive Right Wrist Tinel Test Positive Left,Positive Right OT Problems Problems Problems Decreased Strength,Decreased Range of Motion,Decreased Dexterity,Pain,Decreased Coordination,Sensory Sensitivity,Lifting,Gripping, Pinching Problems Comments Waking up once or twice in the middle of the night due to the R UE pain/ numbness and tingling Other Problems Writing,Opening Containers, Sleeping Patient Potential Good Assessment Assessment Assessment 73 year old R hand dominant female patient who had a fall in April ( 2022) and broke her right wrist which was treated conservatively, now with a healed bone, finished OT therapy for this condition a few months prior. She did do a bone densitometry again which showed completely normal findings as it did last time for years ago. Since then she has had bilateral numbness and tingling in both hands and PCP wrote order for OT on to Eval and treat for Pain in R and L hand (M79.641 & M79 .642). Patient has a positive Tinels and Phalens in bilateral hands when tested today. 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 Problem list includes: Pain to bilateral hands with R ( dominant hand pain worse then the L hand); Paresthesias: numbness and/or tingling, which can impair the patient?s fine motor control of affected digits; Declined cord tire builder and/or pinch strength to affected hand; Declined endurance of affective hand for repetitive activity; Declined functional use of affective hand for ADL tasks; Declined knowledge of ergonomic education, proper body mechanics and joint protection during ADL?s, and in the work environment. PLAN: Instruction of home program with verbal and written instructions; Ergonomics, body mechanics, adaptive equipment and adaptations as needed during ADL?s; Splint don/doff, wearing schedule and hygiene; Education on CTS, basic anatomy and causes of compression; Pt will be referred back to referring physician/ surgeon should symptoms persist or worsen. Patient is agreeable to the plan and motivated to make progress. Occupational Therapy Treatment Plan - OP Potential Rehabilitation Potential Good Barriers Barriers to goal attainment Severe digit ( joint) arthritis in multiple joints ( bilateral thumbs are the worse ). Set Goals Goals Set with Patient Yes Goals Goals 1. There is high-level evidence that supports a standardized protocol of thumb proprioception exercises to address related deficits and improve ADL performance. Therapist will advance patient through all 3 stages of her individualized HEP while using errorless learning for accuracy of program. Patient will be able to demonstrate 100 % of her program with use of visual/ written aids. - progressing, continue 2. Patient will have a decrease in score on the [place] Hand Questionnaire lower score = less impairment ). -progressing, continue 3. Patient upon discharge from therapy should be independent with home program and have returned to their premorbid level of function. - progressing, continue 4. Patient will demonstrate independence with adaptations and adaptive equipment during ADL?s w/ o verbal cues. - progressing, continue 5. Patient will report resolution of paresthesia and/ or pain to affected hands ( both R and L). -progressing, continue Target Date 8 weeks Treatment Plan Treatment Plan Evaluation,Edema Control, Iontophoresis,Joint Mobilization,Manual Therapy, Splinting,Ultrasound, Therapeutic Exercise, Therapeutic Activities,Self Care/Home Management,Education Expected Frequency 1-2x Week Expected Duration 8-10 Weeks Occupational Therapy Billing Units Treatment Minutes Timed Treatment Minutes 47 Total Treatment Minutes 47 Billing Units Manual Therapy 1 Therapeutic Exercise 1 Ultrasound 1 Certification Statement Certification Statement I Certify That: Therapy Services Provided, Therapy Plan Established, Therapy Plan Reviewed Recertification Information Recertification Information Initial Certification Date 10/11/23 Recertification Start Date 01/18/24 Recertification Due Date 03/19/24 Reasons to Continue Skilled Therapy Patient is making steady progress towards written goals in POC Rehabilitation Potential Good Click To Default 'Per treatment plan' Per treatment plan Continued Plan of Care and Interventions Per treatment plan Provider Signature Required Yes Provider Signature Shows Agreement With POC & Medical Necessity Physician NPI Number Write NPI# Here Physician Comment/Change Comment or Changes Physician Signature & Date Requested Please Sign/Date Here
== END 2024-03-14 07:30 | disposition home or self-care (01) ==
PROVIDERS: PCP Family Medicine; Visit Provider Family Medicine
DX: M79.641 Pain in right hand (principal); M79.642 Pain in left hand; R20.2 Paresthesia of skin; Z51.89 Encounter for other specified aftercare
CPT/HCPCS: 97035; 97110; 97140; 97166; X5282

== ENCOUNTER 2024-09-25 08:35 | Outpatient (CLI) | payer OTHER, SELFPAY | END 2024-09-25 08:36 | disposition home or self-care (01) | LOC: NFLDREF 09-26 00:49 | PROVIDERS: PCP Family Medicine; Referring Provider Family Medicine; Visit Provider Family Medicine | DX: E78.5 Hyperlipidemia, unspecified (principal); I10 Essential (primary) hypertension; R73.03 Prediabetes | CPT/HCPCS: 80053; 80061 ==

== ENCOUNTER 2024-10-25 09:56 | Outpatient (CLI) | payer OTHER, SELFPAY ==
--- NOTE | 2024-10-25 10:15 | CRLHL7_ITS ---
For Patients: As a result of the Century Cures Act, medical imaging exams and procedure reports are released immediately into your electronic medical record. You may view this report before your referring provider. If you have questions, please contact your health care provider. INDICATION: BILATERAL SCREENING MAMMOGRAM, ASYMPTOMATIC 74 Y/O FEMALE COMPARISON: 10/18/2023, 10/15/2022, 09/16/2021 TECHNIQUE: Digital mammogram in CC and MLO projections including computer-aided detection (CAD) and tomosynthesis. BREAST COMPOSITION: There are scattered areas of fibroglandular density. FINDINGS: No suspicious findings. ASSESSMENT: BI-RADS 1 Negative RECOMMENDATION: Annual screening mammogram. A lay language report of this examination will be provided to the patient. Dictated by: Myron Pandya MD @ 10/25/2024 10:57:47 (Electronically Signed)
== END 2024-10-25 09:57 | disposition home or self-care (01) ==
LOC: MAMMO 09:57
PROVIDERS: PCP Family Medicine; Visit Provider Family Medicine
DX: Z12.31 Encounter for screening mammogram for malignant neoplasm of breast (principal)
CPT/HCPCS: 77063; 77067

== ENCOUNTER 2025-02-27 13:45 | Outpatient (CLI) | payer OTHER, SELFPAY ==
--- NOTE | 2025-02-27 14:00 | CRLHL7_ITS ---
For Patients: As a result of the Century Cures Act, medical imaging exams and procedure reports are released immediately into your electronic medical record. You may view this report before your referring provider. If you have questions, please contact your health care provider. CLINICAL HISTORY: thrombocytopenia COMPARISON: none TECHNIQUE: Real time hodges scale imaging and color Doppler analysis was performed of the abdomen. FINDINGS: Sonographic imaging demonstrates normal size and uniform echotexture of the liver. The spleen is of normal size. The pancreas is not well visualized due to bowel gas. The proximal abdominal aorta and IVC appear normal. There is no evidence of ascites. The gallbladder is of normal size and there is no evidence of sludge or stones within the gallbladder lumen. The gallbladder wall measures 1 mm in thickness. The common bile duct measures 2 mm in size within the michelle hepatis. The kidneys appear symmetric. The right kidney measures 10.2 cm in length and the left kidney measures 10.8 cm. There is no evidence of a renal calculus or hydronephrosis. IMPRESSION: Normal abdominal ultrasound. Dictated by Myron Pandya MD @ 02/27/2025 4:45:06 PM (Electronically Signed)
== END 2025-02-27 13:46 | disposition home or self-care (01) ==
LOC: US 13:45
PROVIDERS: PCP Family Medicine; Visit Provider Internal Medicine Hematology & Oncology
DX: D69.6 Thrombocytopenia, unspecified (principal)
CPT/HCPCS: 76700